=== PATIENT | female | born 1990 | race Caucasian/White ===

== ENCOUNTER 2016-04-04 13:17 | Emergency (ER) | payer OTHER ==
--- NOTE | 2016-04-04 13:49 | Emergency Department Record ---
History of Present Illness - General Chief Complaint: Abdominal Pain Stated Complaint: ABD PAIN/COUGH Time Seen by Provider: 04/04/16 13:48 Source: Patient Mode of Arrival: Ambulatory Limitations: No limitations - History of Present Illness Initial Comments: The patient is here due to a 3 hour hx of L mid to lower AP. It is intermittent and is sharp and stabbing. Presently the pain is gone. She has had nausea but no vomiting, diarrhea, dysuria, fever, chills, vaginal discharge or bleeding. The patient has a long hx of abdominal issues but this is new for her. She actually was going to the but since they were closed she decided to come to the ER. MD Complaint: Abdominal pain Onset/Timin -: Hour(s) Location: L Flank, LLQ Radiation: None Migration to: No migration Severity: Moderate Quality: Sharp, Stabbing Consistency: Intermittent Improves With: Nothing Worsens With: Movement Associated Symptoms: Nausea - Related Data LMP (females 10-50): Last week Patient : No Previous Rx's Medication Instructions Recorded Doxycycline Monohydrate [Mondoxyne 100 mg PO BID #14 capsule 04/04/16 Nl] Metronidazole [Flagyl] 500 mg PO BID #14 tablet 04/04/16 Allergies Allergy/AdvReac Type Severity Reaction Status Date / Time nitrous oxide Allergy Severe SWELLING Verified 04/04/16 14:44 OF THE FACE enoxaparin sodium Allergy Intermediate ITCHING Verified 04/04/16 14:44 [From Lovenox] ibuprofen Allergy Intermediate itching Verified 04/04/16 14:44 amoxicillin [Amoxicillin] Allergy Mild RASH Verified 04/04/16 14:44 naproxen AdvReac Intermediate HEADACHE Verified 04/04/16 14:44 topiramate [From Topamax] AdvReac Intermediate to many Verified 04/04/16 14:44 side affects Travel Screening - Travel/Exposure Within Last 30 Days Have you traveled within the last 30 days?: No - Travel/Exposure Within Last Year Have you traveled outside the [place] in the last year?: No - Additonal Travel Details Have you been exposed to anyone with a communicable illness?: No - Travel Symptoms Symptom Screening: None Review of Systems Constitutional: Denies: Chills, Fever Eyes: Denies: Eye discharge ENT: Denies: Congestion Respiratory: Denies: Cough, Dyspnea Cardiovascular: Denies: Arrhythmia, Chest pain Past Medical History - SOCIAL HISTORY Smoking Status: Current every day smoker Alcohol Use: Rare Drug Use: None - VP PRODUCTION History : 2 Para: 1 A: 1 - RESPIRATORY Hx Respiratory Disorders: No - CARDIOVASCULAR Hx Cardio Disorders: No - NEURO Hx Neuro Disorders: Yes Hx Dizziness: Yes Hx Headaches: Yes Hx Seizures: Yes (day dream seizures, epilepsy) - GI Hx GI Disorders: No - Hx Genitourinary Disorders: No - ENDOCRINE Hx Endocrine Disorders: No - MUSCULOSKELETAL Hx Musculoskeletal Disorders: Yes Hx Back Injury: Yes (L1 from fall off roof 2007) Comment:: conective tissue disorder, scoliosis - PSYCH Hx Psych Problems: Yes Hx Anxiety: Yes Hx Depression: Yes - HEMATOLOGY/ONCOLOGY Hx Hematology/Oncology Disorders: Yes Comment:: auto immune deficiency Family Medical History Any Significant Family History?: Yes Family Hx Comment (NOT TO BE USED IN PLACE OF ITEMS BELOW): Dad-brain aneurysm Mother has Lupus and White Brain Matter disease. Hx Depression: Mother Hx Heart Disease: Mother Hx HTN: Mother Physical Exam - General General Appearance: Alert, Oriented x3, Cooperative, No acute distress - Head Head exam: Atraumatic, Normocephalic, Normal inspection - Eye Eye exam: Normal appearance, PERRL - Neck Neck exam: Normal inspection, Full ROM. negative: Tenderness - Respiratory Respiratory exam: Normal lung sounds bilaterally. negative: Respiratory distress - Cardiovascular Cardiovascular Exam: Regular rate, Normal rhythm, Normal heart sounds - GI/Abdominal GI/Abdominal exam: Soft, Normal bowel sounds, Tenderness (There is mild tenderness to the L mid abdomen but the abdomen is very soft.). negative: Guarding, Pulsatile mass, Rebound, Rigid - exam: Cervical discharge, cervical motion tenderness, Normal external exam, Vaginal discharge. negative: Adnexal mass (R), Adnexal tenderness (L), Adnexal tenderness (R), Enlarged uterus, Normal speculum exam, Vaginal bleeding - Extremities Extremities exam: Normal inspection, Full ROM, Normal capillary refill. negative: Tenderness Course Vital Signs 04/04/16 13:36 Temperature 98.5 F Pulse Rate 87 Respiratory 16 Rate Blood Pressure 131/79 Pulse Ox 99 - Reevaluation(s) Reevaluation #1: The patient is doing much better at this time. She denies any pain presently and has no nausea or vomiting. She stats she does feel very mild pain with movement and bending. 01/07/17 15:26 Reevaluation #2: The patient is doing well at this time. Her pain is well controlled and we will treat her with Abx's for a presumed vaginal infection. 04/04/16 16:12 Reevaluation #3: The patient is doing very well at this time. She denies any pain or discomfort and is up ambulating with no discomfort. I explained to her we will be treating her with 2 different Abx's and will have her recheck with her PCP later this week if needed. She is to return to the ER if worse. 04/04/16 16:17 Medical Decision Making - Data Complexity MDM Data: Labs Ordered and/or Reviewed - Lab Data Result diagrams: 04/04/16 14:08 04/04/16 14:08 Disposition Disposition: Discharge Clinical Impression: Abdominal pain Qualifiers: Abdominal location: unspecified location Qualified Code(s): R10.9 - Unspecified abdominal pain Disposition: Home, Self-Care Condition: (1) Good Instructions: Abdominal Pain (ED) Additional Instructions: Please take your home Tylenol for pain. Take the Doxy and Flagyl as directed. Please see your PCP for recheck next week if needed. Return to the ER for any increased pain, fever, or vomiting. Prescriptions: Metronidazole [Flagyl] 500 mg PO BID #14 tablet Doxycycline Monohydrate [Mondoxyne Nl] 100 mg PO BID #14 capsule Forms: Patient Portal Access Time of Disposition: 16:17
[2016-04-04 14:12] LABS: BASO % 0.2 % (0-6); EOS % 1.5 % (0-6); GRAN % 42.9 % (47-80); HEMOGLOBIN 13.6 gm/dl (11.6-16.0); LYMPH % 44.4 % (16-45); MEAN CELL VOLUME 92.3 fl (81-97); MEAN CORPUSCULAR HEMOGLOBIN 30.6 pg (27-33); MEAN CORPUSCULAR HGB CONC 33.2 g/dl (32-36); MEAN PLATELET VOLUME 10.6 fl (7.4-10.4); PLATELET COUNT 191 K/uL (130-400); RED BLOOD COUNT 4.44 M/uL (3.80-5.40); RED CELL DISTRIBUTION WIDTH 13.6 % (11.5-14.5); WHITE BLOOD COUNT W/O DIFF 5.3 K/uL (4.2-12.2)
[2016-04-04 14:15] LABS: URINE APPEARANCE SL CLOUDY; URINE BILIRUBIN NEGATIVE (NEGATIVE); URINE BLOOD TRACE-I (NEGATIVE); URINE COLOR YELLOW; URINE GLUCOSE (UA) NEGATIVE (NEGATIVE); URINE KETONE NEGATIVE (NEGATIVE); URINE LEUKOCYTE ESTERASE NEGATIVE (NEGATIVE); URINE NITRITE POSITIVE (NEGATIVE); URINE PROTEIN NEGATIVE (NEGATIVE); URINE UROBILINOGEN 0.2 E.U./dL (0.20 - 1.00)
[2016-04-04 14:21] LABS: URINE BACTERIA 4+; URINE RBC 0 - 2 (NONE SEEN); URINE SQUAMOUS EPITHELIAL CELL 16 - 20 /hpf
[2016-04-04 14:22] LABS: HCG,QUALITATIVE URINE NEGATIVE (NEGATIVE)
[2016-04-04 14:24] LABS: ALBUMIN 4.4 gm/dL (3.5-5.0); ALKALINE PHOSPHATASE 73 U/L (38-126); ALT/SGPT 28 U/L (9-52); ANION GAP 8.2 (7-16); AST/SGOT 16 U/L (14-36); BILIRUBIN,TOTAL 0.32 mg/dL (0.2-1.3); BLOOD UREA NITROGEN 6 mg/dL (7-17); CARBON DIOXIDE 27.8 mmol/L (22-30); CREATININE 0.7 mg/dL (0.52-1.04); EST GLOMERULAR FILTRATION RATE > 60 ml/min; GLUCOSE,RANDOM 70 mg/dL (70-110); LIPASE 52 U/L (23-300); TOTAL PROTEIN 7.5 gm/dL (6.3-8.2)
[2016-04-04] MEDS: KETOROLAC 30 MG/ML VIAL IM ONE (14:45)
[2016-04-04 14:59] LABS: URINE APPEARANCE CLEAR; URINE BILIRUBIN NEGATIVE (NEGATIVE); URINE BLOOD NEGATIVE (NEGATIVE); URINE COLOR YELLOW; URINE GLUCOSE (UA) NEGATIVE (NEGATIVE); URINE KETONE NEGATIVE (NEGATIVE); URINE LEUKOCYTE ESTERASE NEGATIVE (NEGATIVE); URINE NITRITE NEGATIVE (NEGATIVE); URINE PROTEIN NEGATIVE (NEGATIVE); URINE UROBILINOGEN 0.2 E.U./dL (0.20 - 1.00)
[2016-04-04 15:13] LABS: URINE RBC NONE SEEN (NONE SEEN); URINE WBC 0 - 2 (0-2/hpf)
[2016-04-04 15:14] LABS: URINE BACTERIA 3+; URINE SQUAMOUS EPITHELIAL CELL 0 - 2 /hpf
[2016-04-04] MEDS: CEFTRIAXONE 250 MG VIAL IM ONE (16:08)
[2016-04-06 18:44] LABS: GC SPECIMEN TYPE Cervix (())
== END 2016-04-04 16:26 | disposition home or self-care (01) ==
LOC: ER 13:17
DX: R10.32 Left lower quadrant pain (principal); R11.0 Nausea; R05 Cough
CPT/HCPCS: 99284 ×2; 96372; 83690; 85025; 80076; 80048; 81001; 81003; 87205; 81015; 81025; 87086; Q0111; J1885; J0696; 87210

== ENCOUNTER 2016-04-09 06:25 | Emergency (ER) | payer OTHER ==
[2016-04-09 06:37] LABS: URINE APPEARANCE CLEAR; URINE BILIRUBIN NEGATIVE (NEGATIVE); URINE BLOOD TRACE-I (NEGATIVE); URINE COLOR YELLOW; URINE GLUCOSE (UA) NEGATIVE (NEGATIVE); URINE KETONE NEGATIVE (NEGATIVE); URINE LEUKOCYTE ESTERASE NEGATIVE (NEGATIVE); URINE NITRITE NEGATIVE (NEGATIVE); URINE PROTEIN NEGATIVE (NEGATIVE); URINE UROBILINOGEN 0.2 E.U./dL (0.20 - 1.00)
[2016-04-09 06:42] LABS: URINE BACTERIA NONE SEEN; URINE EPITHELIAL CELLS 0 - 2 (FEW); URINE WBC NONE SEEN (0-2/hpf)
--- NOTE | 2016-04-09 06:53 | Emergency Department Record ---
History of Present Illness - General Chief Complaint: Recheck - Other Stated Complaint: RECHECK Time Seen by Provider: 04/09/16 06:44 Source: Patient Mode of arrival: Ambulatory Limitations: No limitations - History of Present Illness Initial Comments: The patient is here due to being called for an abnormal lab test. She had a UA done during a visit 5 days ago and it did grow Ecoli on culture. The patient denied any dysuria during that visit and denies any AP, nausea, or dysuria now. She also denies any back pain or fevers. MD Complaint: Abnormal lab Onset/Timin -: Days(s) Initial Visit For: Other Returns Today for: Called because of abnormal lab/test Symptoms Since Prior Visit: No new symptoms, Improved Associated Symptoms: None Treatments Prior to Arrival: Other - Related Data Previous Rx's Medication Instructions Recorded Doxycycline Monohydrate [Mondoxyne 100 mg PO BID #14 capsule 04/04/16 Nl] Metronidazole [Flagyl] 500 mg PO BID #14 tablet 04/04/16 Allergies Allergy/AdvReac Type Severity Reaction Status Date / Time nitrous oxide Allergy Severe SWELLING Verified 04/04/16 14:44 OF THE FACE enoxaparin sodium Allergy Intermediate ITCHING Verified 04/04/16 14:44 [From Lovenox] ibuprofen Allergy Intermediate itching Verified 04/04/16 14:44 amoxicillin [Amoxicillin] Allergy Mild RASH Verified 04/04/16 14:44 naproxen AdvReac Intermediate HEADACHE Verified 04/04/16 14:44 topiramate [From Topamax] AdvReac Intermediate to many Verified 04/04/16 14:44 side affects Travel Screening - Travel/Exposure Within Last 30 Days Have you traveled within the last 30 days?: No - Travel/Exposure Within Last Year Have you traveled outside the [place] in the last year?: No - Additonal Travel Details Have you been exposed to anyone with a communicable illness?: No - Travel Symptoms Symptom Screening: None Review of Systems Constitutional: Denies: Chills, Fever Past Medical History - SOCIAL HISTORY Smoking Status: Current every day smoker Alcohol Use: None Drug Use: None - RESPIRATORY Hx Respiratory Disorders: No - CARDIOVASCULAR Hx Cardio Disorders: No - NEURO Hx Neuro Disorders: Yes Hx Dizziness: Yes Hx Headaches: Yes Hx Seizures: Yes (day dream seizures, epilepsy) - GI Hx GI Disorders: No - Hx Genitourinary Disorders: No - ENDOCRINE Hx Endocrine Disorders: No - MUSCULOSKELETAL Hx Musculoskeletal Disorders: Yes Hx Back Injury: Yes (L1 from fall off roof 2007) Comment:: conective tissue disorder, scoliosis - PSYCH Hx Psych Problems: Yes Hx Anxiety: Yes Hx Depression: Yes - HEMATOLOGY/ONCOLOGY Hx Hematology/Oncology Disorders: Yes Comment:: auto immune deficiency Family Medical History Any Significant Family History?: No Family Hx Comment (NOT TO BE USED IN PLACE OF ITEMS BELOW): Dad-brain aneurysm Mother has Lupus and White Brain Matter disease. Hx Depression: Mother Hx Heart Disease: Mother Hx HTN: Mother Physical Exam - General General Appearance: Alert, Oriented x3, Cooperative, No acute distress - Head Head exam: Atraumatic, Normocephalic, Normal inspection - Eye Eye exam: Normal appearance, PERRL - Neck Neck exam: Normal inspection, Full ROM. negative: Tenderness - Respiratory Respiratory exam: Normal lung sounds bilaterally. negative: Respiratory distress - Cardiovascular Cardiovascular Exam: Regular rate, Normal rhythm, Normal heart sounds - GI/Abdominal GI/Abdominal exam: Soft, Normal bowel sounds. negative: Guarding, Rigid, Tenderness Course Vital Signs 04/09/16 04/09/16 06:27 06:35 Temperature 99.0 F Pulse Rate 86 Respiratory 20 Rate Blood Pressure 117/69 Pulse Ox 96 - Reevaluation(s) Reevaluation #1: I explained to the patient her UA is WNL and she is to F/U with her PCP for any problems. 04/09/16 07:01 Medical Decision Making - Lab Data Lab Results 04/09/16 Range/Units 06:30 Urine Color Yellow Urine Appearance Clear Urine pH 6.0 (5.0-8.0) Ur Specific [place] 1.025 (1.002-1.030) Urine Protein Negative (NEGATIVE) Urine Glucose (UA) Negative (NEGATIVE) Urine Ketones Negative (NEGATIVE) Urine Blood Trace-i (NEGATIVE) Urine Nitrite Negative (NEGATIVE) Urine Bilirubin Negative (NEGATIVE) Urine Urobilinogen 0.2 (0.20 - 1.00) E.U./dL Ur Leukocyte Esterase Negative (NEGATIVE) Urine RBC 3 - 6 (NONE SEEN) Urine WBC None seen (0-2/hpf) Ur Epithelial Cells 0 - 2 (FEW) Urine Bacteria None seen Disposition Disposition: Discharge Clinical Impression: Abdominal pain Qualifiers: Abdominal location: unspecified location Qualified Code(s): R10.9 - Unspecified abdominal pain Disposition: Home, Self-Care Condition: (1) Good Instructions: Acute Abdominal Pain (ED) Additional Instructions: Please continue your regular medicines and finish your Antibiotics. Please see your PCP for any problems or return to the ER. Forms: Patient Portal Access Time of Disposition: 06:56
== END 2016-04-09 07:06 | disposition home or self-care (01) ==
LOC: ER 06:25
DX: R10.9 Unspecified abdominal pain (principal)
CPT/HCPCS: 81001; 99282

== ENCOUNTER 2016-04-13 07:39 | Emergency (ER) | payer OTHER ==
--- NOTE | 2016-04-13 07:55 | Emergency Department Record ---
History of Present Illness - General Chief Complaint: Abdominal Pain Stated Complaint: ABD PAIN Time Seen by Provider: 04/13/16 07:54 Source: Patient Mode of Arrival: Ambulatory Limitations: No limitations - History of Present Illness Initial Comments: The patient is here due to a 4 day hx of mainly upper abdominal pain. The pain is sharp and stabbing and increases with eating at times. After eating recently the patient has experienced bloating, cramping, and mild constipation. She denies any vaginal discharge, bleeding, or dysuria. This issues has been a chronic problem for months with the patient and she has been to the ER multiple times for abdominal pain. She last was in the ED 9 days ago and had a full pelvic exam with neg cultures. The patient has had her GB removed in the past. MD Complaint: Abdominal pain Onset/Timin -: Days(s) Location: Epigastric, Suprapubic Radiation: None Migration to: No migration Severity: Moderate Quality: Sharp, Stabbing Consistency: Constant Improves With: Nothing Worsens With: Nothing Associated Symptoms: Nausea, Vomiting - Related Data LMP Date: 03/22/16 Patient : No Previous Rx's Medication Instructions Recorded Ondansetron [Zofran Odt] 4 mg SL .Q4-6H PRN #12 tab.rapdis 04/13/16 Sucralfate [Carafate] 1 gm PO QID #28 tablet 04/13/16 Allergies Allergy/AdvReac Type Severity Reaction Status Date / Time nitrous oxide Allergy Severe SWELLING Verified 04/04/16 14:44 OF THE FACE enoxaparin sodium Allergy Intermediate ITCHING Verified 04/04/16 14:44 [From Lovenox] ibuprofen Allergy Intermediate itching Verified 04/04/16 14:44 amoxicillin [Amoxicillin] Allergy Mild RASH Verified 04/04/16 14:44 naproxen AdvReac Intermediate HEADACHE Verified 04/04/16 14:44 topiramate [From Topamax] AdvReac Intermediate to many Verified 04/04/16 14:44 side affects Travel Screening - Travel/Exposure Within Last 30 Days Have you traveled within the last 30 days?: No Review of Systems Constitutional: Denies: Chills, Fever Eyes: Denies: Eye discharge ENT: Denies: Congestion Respiratory: Denies: Cough, Dyspnea Past Medical History - SOCIAL HISTORY Smoking Status: Current every day smoker Alcohol Use: None Drug Use: None - RESPIRATORY Hx Respiratory Disorders: No - CARDIOVASCULAR Hx Cardio Disorders: No - NEURO Hx Neuro Disorders: Yes Hx Dizziness: Yes Hx Headaches: Yes Hx Seizures: Yes (day dream seizures, epilepsy) - GI Hx GI Disorders: No - Hx Genitourinary Disorders: No - ENDOCRINE Hx Endocrine Disorders: No - MUSCULOSKELETAL Hx Musculoskeletal Disorders: Yes Hx Back Injury: Yes (L1 from fall off roof 2007) Comment:: conective tissue disorder, scoliosis - PSYCH Hx Psych Problems: Yes Hx Anxiety: Yes Hx Depression: Yes - HEMATOLOGY/ONCOLOGY Hx Hematology/Oncology Disorders: Yes Comment:: auto immune deficiency Family Medical History Any Significant Family History?: Yes Family Hx Comment (NOT TO BE USED IN PLACE OF ITEMS BELOW): Dad-brain aneurysm Mother has Lupus and White Brain Matter disease. Hx Depression: Mother Hx Heart Disease: Mother Hx HTN: Mother Physical Exam - General General Appearance: Alert, Oriented x3, Cooperative, No acute distress - Head Head exam: Atraumatic, Normocephalic, Normal inspection - Eye Eye exam: Normal appearance, PERRL - ENT Throat exam: Normal inspection. negative: Tonsillar erythema, Tonsillar exudate - Neck Neck exam: Normal inspection, Full ROM. negative: Tenderness - Respiratory Respiratory exam: Normal lung sounds bilaterally. negative: Respiratory distress - Cardiovascular Cardiovascular Exam: Regular rate, Normal rhythm, Normal heart sounds - GI/Abdominal GI/Abdominal exam: Soft, Normal bowel sounds, Tenderness (There is mild upper abdominal tenderness but the abdomen is very soft.). negative: Pulsatile mass, Rebound, Rigid - Extremities Extremities exam: Normal inspection, Full ROM, Normal capillary refill. negative: Tenderness - Neurological Neurological exam: Normal gait. negative: Abnormal gait Course Vital Signs 04/13/16 07:53 Temperature 98.2 F Pulse Rate [ 89 Pulse Ox Probe] Respiratory 18 Rate Blood Pressure 105/77 [Right Arm] Pulse Ox 96 - Reevaluation(s) Reevaluation #1: The patient is doing much better at this time. Her pain has mainly resolved with the GI medicines and there is no longer any mild tenderness on palpation of the upper abdomen. 04/13/16 08:56 Reevaluation #2: The patient is doing better at this time. She denies any significant pain presently. On exam her abdomen is VERY soft with no specific tenderness in all 4 quads. I did explain the plan to her and the need for F/U. 04/13/16 09:25 Medical Decision Making - Data Complexity MDM Data: Labs Ordered and/or Reviewed, X-Ray Ordered and/or Reviewed - Lab Data Result diagrams: 04/13/16 07:50 04/13/16 07:50 - Radiology Data Radiology results: Report reviewed (AXR: Neg.) Disposition Disposition: Discharge Clinical Impression: Abdominal pain Qualifiers: Abdominal location: unspecified location Qualified Code(s): R10.9 - Unspecified abdominal pain Disposition: Home, Self-Care Condition: (1) Good Instructions: Constipation (ED), Abdominal Pain (ED) Additional Instructions: Please take an OTC laxative as directed and use the Zofran for nausea. Please take the Carafate as directed. Please see your PCP this week for recheck and also follow up with Dr. Sherman for a possible EGD. Return to the ER for any increased pain, fever, or vomiting. Prescriptions: Sucralfate [Carafate] 1 gm PO QID #28 tablet Ondansetron [Zofran Odt] 4 mg SL .Q4-6H PRN #12 tab.rapdis PRN Reason: Nausea Forms: Patient Portal Access Time of Disposition: 09:29
[2016-04-13] MEDS ORDERED: 0.9 % SODIUM CHLORIDE 1,000 ML BAG IV ONE (07:58)
[2016-04-13] MEDS ORDERED: ONDANSETRON HCL IV 4 MG/2 ML VIAL IV ONE (07:58)
[2016-04-13] MEDS ORDERED: MAGNESIUM HYDROXIDE/AL HYDROX 10.0001 ML, LIDOCAINE VISC 2% 200 MG, PHENOBARB/HYOSCY/AT... PO ONE ×3 (07:59)
[2016-04-13] MEDS ORDERED: SUCRALFATE 1 G/10 ML UD PO ONE (07:59)
[2016-04-13 08:09] LABS: BASO % 0.2 % (0-6); EOS % 1.4 % (0-6); GRAN % 48.9 % (47-80); HEMATOCRIT 44.1 % (35.0-47.0); HEMOGLOBIN 14.9 gm/dl (11.6-16.0); MEAN CORPUSCULAR HEMOGLOBIN 30.4 pg (27-33); MEAN CORPUSCULAR HGB CONC 33.8 g/dl (32-36); MEAN PLATELET VOLUME 10.3 fl (7.4-10.4); MONO % 7.5 % (0-9); PLATELET COUNT 258 K/uL (130-400); RED CELL DISTRIBUTION WIDTH 13.4 % (11.5-14.5); WHITE BLOOD COUNT W/O DIFF 9.6 K/uL (4.2-12.2)
[2016-04-13 08:10] LABS: HCG,QUALITATIVE URINE NEGATIVE (NEGATIVE)
[2016-04-13 08:15] LABS: URINE APPEARANCE CLEAR; URINE BILIRUBIN NEGATIVE (NEGATIVE); URINE BLOOD NEGATIVE (NEGATIVE); URINE COLOR YELLOW; URINE GLUCOSE (UA) NEGATIVE (NEGATIVE); URINE KETONE NEGATIVE (NEGATIVE); URINE LEUKOCYTE ESTERASE SMALL (NEGATIVE); URINE NITRITE NEGATIVE (NEGATIVE); URINE PROTEIN NEGATIVE (NEGATIVE); URINE UROBILINOGEN 0.2 E.U./dL (0.20 - 1.00)
[2016-04-13 08:18] LABS: ALBUMIN 5.2 gm/dL (3.5-5.0); ALKALINE PHOSPHATASE 84 U/L (38-126); ALT/SGPT 32 U/L (9-52); AMYLASE 73 U/L (30-110); ANION GAP 17.1 (7-16); AST/SGOT 23 U/L (14-36); BLOOD UREA NITROGEN 8 mg/dL (7-17); CARBON DIOXIDE 26.9 mmol/L (22-30); CREATININE 0.8 mg/dL (0.52-1.04); EST GLOMERULAR FILTRATION RATE > 60 ml/min; GLUCOSE,RANDOM 83 mg/dL (70-110); LIPASE 49 U/L (23-300); TOTAL PROTEIN 8.5 gm/dL (6.3-8.2)
[2016-04-13 08:23] LABS: URINE BACTERIA FEW; URINE RBC 0 - 2 (NONE SEEN)
--- NOTE | 2016-04-16 09:05 | RADIOLOGY REPORT ---
EXAM: ABDOMEN, TWO VIEWS HISTORY: ABDOMINAL PAIN, CANNOT KEEP FOOD DOWN, NAUSEATED. THE PAIN IS IN THE UPPER AND LOWER MID PORTIONS OF THE ABDOMEN. TECHNIQUE: Supine and upright views of the abdomen were obtained. Comparison: No prior abdomen series. FINDINGS: Moderate stool particularly in the left side of the colon. No prominently dilated air filled loops of bowel identified. There are a few mild scattered air fluid levels probably in the proximal colon. No free air identified. Round metallic densities overlying the breast shadows bilaterally, presumably periareolar ornamental devices. IMPRESSION: 1. MODERATE STOOL PARTICULARLY IN THE LEFT SIDE OF THE COLON. CLINICAL CORRELATION TO CONSTIPATION SUGGESTED. 2. SOME MILD AIR FLUID LEVELS PARTICULARLY IN THE RIGHT SIDE OF THE COLON. 3. NO FREE AIR EVIDENT. JOB NUMBER: [id number] [facility]
== END 2016-04-13 09:44 | disposition home or self-care (01) ==
LOC: ER 07:39
DX: R10.13 Epigastric pain (principal); R11.2 Nausea with vomiting, unspecified
CPT/HCPCS: 99284 ×2; 96374; 96361; 82150; 83690; 85025; 80076; 80048; 81001; 81025; 74020; J2405; J7030

== ENCOUNTER 2016-05-03 11:51 | Emergency (ER) | payer OTHER ==
--- NOTE | 2016-05-03 12:16 | Emergency Department Record ---
History of Present Illness - General Chief complaint: Vaginal bleeding Stated complaint: VAG BLEEDING/6 WKS Time Seen by Provider: 05/03/16 11:53 Source: Patient Mode of Arrival: Ambulatory Limitations: No limitations - History of Present Illness Initial comments: 26 yo female presents to ED with a CC of vaginal spotting and cramping symptoms that began this morning. Patient reports that she is approximately 6 weeks by dates, reported taking several tests 2 weeks ago. Patient reports that she had a "ruptured cyst" 4 years ago while with her son. Patient denies health problems at her baseline. MD Complaint: Vaginal bleeding Onset/Timin -: Minutes(s) Location: Other Radiation: Suprapubic Severity: Mild Severity scale (1-10): 2 Quality: Cramping Consistency: Constant Improves with: None Worsens with: None Patient : Yes LMP Date: 03/22/16 Gestational Age (wks) based on LMP: 6 Associated Symptoms: Vaginal bleeding - Related Data : 3 Para: 1 Previous Rx's Medication Instructions Recorded Ondansetron [Zofran Odt] 4 mg SL .Q4-6H PRN #12 tab.rapdis 04/13/16 Allergies Allergy/AdvReac Type Severity Reaction Status Date / Time nitrous oxide Allergy Severe SWELLING Verified 05/03/16 12:04 OF THE FACE enoxaparin sodium Allergy Intermediate ITCHING Verified 05/03/16 12:04 [From Lovenox] ibuprofen Allergy Intermediate itching Verified 05/03/16 12:04 amoxicillin [Amoxicillin] Allergy Mild RASH Verified 05/03/16 12:04 naproxen AdvReac Intermediate HEADACHE Verified 05/03/16 12:04 topiramate [From Topamax] AdvReac Intermediate to many Verified 05/03/16 12:04 side affects Travel Screening - Travel/Exposure Within Last 30 Days Have you traveled within the last 30 days?: No Review of Systems Constitutional: Denies: Chills, Fever, Malaise, Night sweats Eyes: Denies: Eye discharge, Eye pain ENT: Denies: Dental pain, Ear pain Respiratory: Denies: Cough, Dyspnea Cardiovascular: Denies: Chest pain, Dyspnea on exertion Endocrine: Denies: Fatigue, Heat or cold intolerance Gastrointestinal: Denies: Abdominal pain, Nausea, Vomiting Genitourinary: Denies: Dysuria, Frequency, Hematuria, Incontinence Musculoskeletal: Denies: Arthralgia, Back pain, Gout, Joint swelling Skin: Denies: Bruising, Change in color Neurological: Denies: Abnormal gait, Confusion, Headache, Seizure Psychiatric: Denies: Anxiety Hematological/Lymphatic: Denies: Anemia, Blood Clots Past Medical History - SOCIAL HISTORY Smoking Status: Current every day smoker Alcohol Use: None 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 Para: 1 - RESPIRATORY Hx Respiratory Disorders: No - CARDIOVASCULAR Hx Cardio Disorders: No - NEURO Hx Neuro Disorders: Yes Hx Dizziness: Yes Hx Headaches: Yes Hx Seizures: Yes (day dream seizures, epilepsy) - GI Hx GI Disorders: No - Hx Genitourinary Disorders: No - ENDOCRINE Hx Endocrine Disorders: No - MUSCULOSKELETAL Hx Musculoskeletal Disorders: Yes Hx Back Injury: Yes (L1 from fall off roof 2007) Comment:: conective tissue disorder, scoliosis - PSYCH Hx Psych Problems: Yes Hx Anxiety: Yes Hx Depression: Yes - HEMATOLOGY/ONCOLOGY Hx Hematology/Oncology Disorders: Yes Comment:: auto immune deficiency Family Medical History Any Significant Family History?: Yes Family Hx Comment (NOT TO BE USED IN PLACE OF ITEMS BELOW): Dad-brain aneurysm Mother has Lupus and White Brain Matter disease. Hx Depression: Mother Hx Heart Disease: Mother Hx HTN: Mother Physical Exam - General General Appearance: Alert, Oriented x3, Cooperative, No acute distress Limitations: No limitations - Head Head exam: Atraumatic, Normocephalic, Normal inspection Head exam detail: negative: Abrasion, Contusion, Cruz's sign, General tenderness, Hematoma, Laceration - Eye Eye exam: Normal appearance. negative: Conjunctival injection, Periorbital swelling, Periorbital tenderness, Scleral icterus - ENT Ear exam: negative: Auricular hematoma, Auricular trauma Nasal Exam: negative: Active bleeding, Discharge, Dried blood, Foreign body Mouth exam: negative: Drooling, Laceration, Muffled voice, Tongue elevation - Neck Neck exam: Normal inspection. negative: Meningismus, Tenderness - Respiratory Respiratory exam: Normal lung sounds bilaterally. negative: Respiratory distress, Rhonchi, Stridor, Wheezes - Cardiovascular Cardiovascular Exam: Regular rate, Normal rhythm, Normal heart sounds - GI/Abdominal GI/Abdominal exam: Soft. negative: Rebound, Rigid, Tenderness - Rectal Rectal exam: Deferred - exam: Deferred - Extremities Extremities exam: Normal inspection. negative: Calf tenderness, Pedal edema, Tenderness - Back Back exam: Denies: CVA tenderness (R), CVA tenderness (L) - Neurological Neurological exam: Alert, Normal gait, Oriented X3 - Psychiatric Psychiatric exam: Normal affect, Normal mood. negative: Anxious - Skin Skin exam: Normal color. negative: Abrasion Type of lesion: negative: abrasion Course Vital Signs 05/03/16 11:58 Temperature 98.3 F Pulse Rate 95 H Respiratory 16 Rate Blood Pressure 124/70 Pulse Ox 98 - Reevaluation(s) Reevaluation #1: 05/03/16 12:36 UA reviewed and is positive for . BHCG ordered as well as Rh type. Case was discussed with Dr. Dumas at [facility] per patient request, will transfer for pelvic ultrasound following blood work. 05/03/16 13:21 Reevaluation #2: 05/03/16 13:22 Patient's labs have been reviwed, Rh negative, BHCG 438. Labs are otherwise grossly unremarkable for an acute process. Medical Decision Making - Lab Data Result diagrams: 05/03/16 12:42 05/03/16 12:42 Disposition Disposition: Transfer Clinical Impression: Vaginal bleeding in Qualifiers: Trimester: first trimester Qualified Code(s): O46.91 - Antepartum hemorrhage, unspecified, first trimester Disposition: Acute Care Hospital Transfer Transfer To: [facility] Reason For Transfer: US imaging pelvis Accepting Physician: Alesia Time Discussed w/Accepting Physician: 12:38 Condition: (2) Stable Forms: Patient Portal Access Time of Disposition: 12:38
[2016-05-03 12:21] LABS: URINE APPEARANCE CLEAR; URINE BILIRUBIN NEGATIVE (NEGATIVE); URINE BLOOD LARGE (NEGATIVE); URINE COLOR YELLOW; URINE GLUCOSE (UA) NEGATIVE (NEGATIVE); URINE KETONE NEGATIVE (NEGATIVE); URINE LEUKOCYTE ESTERASE TRACE (NEGATIVE); URINE NITRITE POSITIVE (NEGATIVE); URINE PROTEIN NEGATIVE (NEGATIVE); URINE UROBILINOGEN 0.2 E.U./dL (0.20 - 1.00)
[2016-05-03 12:27] LABS: HCG,QUALITATIVE URINE POSITIVE (NEGATIVE); URINE BACTERIA 2+; URINE RBC 21 - 35 (NONE SEEN)
[2016-05-03 12:51] LABS: BASO % 0.3 % (0-6); EOS % 1.6 % (0-6); GRAN % 54.2 % (47-80); HEMOGLOBIN 13.7 gm/dl (11.6-16.0); LYMPH % 35.9 % (16-45); MEAN CELL VOLUME 91.7 fl (81-97); MEAN CORPUSCULAR HEMOGLOBIN 30.6 pg (27-33); MEAN CORPUSCULAR HGB CONC 33.4 g/dl (32-36); MEAN PLATELET VOLUME 10.5 fl (7.4-10.4); PLATELET COUNT 254 K/uL (130-400); RED BLOOD COUNT 4.47 M/uL (3.80-5.40); RED CELL DISTRIBUTION WIDTH 13.4 % (11.5-14.5); WHITE BLOOD COUNT W/O DIFF 6.4 K/uL (4.2-12.2)
[2016-05-03 13:04] LABS: ALB/GLOB RATIO 1.7 (1.1-1.8); ALBUMIN 4.8 gm/dL (3.5-5.0); ALKALINE PHOSPHATASE 80 U/L (38-126); ALT/SGPT 26 U/L (9-52); ANION GAP 16.4 (7-16); AST/SGOT 17 U/L (14-36); BILIRUBIN,TOTAL 0.41 mg/dL (0.2-1.3); BLOOD UREA NITROGEN 8 mg/dL (7-17); CARBON DIOXIDE 23.6 mmol/L (22-30); CREATININE 0.7 mg/dL (0.52-1.04); EST GLOMERULAR FILTRATION RATE > 60 ml/min; GLUCOSE,RANDOM 80 mg/dL (70-110); TOTAL PROTEIN 7.7 gm/dL (6.3-8.2)
== END 2016-05-03 13:00 | disposition short-term general hospital (02) ==
LOC: ER 11:51
DX: O46.91 Antepartum hemorrhage, unspecified, first trimester (principal); Z3A.01 Less than 8 weeks gestation of pregnancy
CPT/HCPCS: 80053; 81001; 81025; 84702; 85025; 86901; 99285

== ENCOUNTER 2016-08-17 15:13 | Emergency (ER) | payer OTHER ==
--- NOTE | 2016-08-17 15:34 | Emergency Department Record ---
History of Present Illness - General Chief Complaint: Numbness Stated Complaint: NUMBNESS ALL OVER HER BODY Time Seen by Provider: 08/17/16 15:30 Source: Patient Mode of Arrival: Ambulatory Limitations: No limitations - History of Present Illness Initial Comments: 26 yo female presents to ED with a CC of intermittent, bilateral parasthesias to the lips, upper extremities, back, and lower extremities at various times over the past 2 days. Patient denies motor weakness to the face, head, or extremities, denies back pain symptoms, denies fever or incontinence symptoms. Patient deneis headache symptoms as well. Patient does report restarting Vitamin D yesterday, symptoms have occurred following the ingestion each time. Patient denies health problems at her baseline. Onset/Timin -: Days(s) Location: Left face, Right face, Left leg, Right leg, Other History of same: No Place: Home Severity: Mild Quality: Numb Context: Gradual onset Associated Symptoms: Other Treatments Prior to Arrival: None - Danielito Coma Scale Eye Response: (4) Open spontaneously Motor Response: (6) Obeys commands Verbal Response: (5) Oriented Danielito Total: 15 - Related Data Home Medications: Home Medications Medication Instructions Recorded Confirmed Last Taken Cholecalciferol (Vitamin D3) 10,000 unit PO DAILY 08/17/16 08/17/16 08/17/16 [Vitamin D3] Allergies/Adverse Reactions: Allergies Allergy/AdvReac Type Severity Reaction Status Date / Time nitrous oxide Allergy Severe SWELLING Verified 08/17/16 15:21 OF THE FACE enoxaparin sodium Allergy Intermediate ITCHING Verified 08/17/16 15:21 [From Lovenox] ibuprofen Allergy Intermediate itching Verified 08/17/16 15:21 amoxicillin [Amoxicillin] Allergy Mild RASH Verified 08/17/16 15:21 naproxen AdvReac Intermediate HEADACHE Verified 08/17/16 15:21 topiramate [From Topamax] AdvReac Intermediate to many Verified 08/17/16 15:21 side affects Travel Screening - Travel/Exposure Within Last 30 Days Have you traveled within the last 30 days?: No Review of Systems Constitutional: Denies: Chills, Fever, Malaise, Night sweats Eyes: Denies: Eye discharge, Eye pain ENT: Denies: Congestion, Ear pain, Epistaxis Respiratory: Denies: Cough, Dyspnea Cardiovascular: Denies: Chest pain, Dyspnea on exertion Endocrine: Denies: Fatigue, Heat or cold intolerance Gastrointestinal: Denies: Abdominal pain, Nausea, Vomiting Genitourinary: Denies: Dysuria, Incontinence Musculoskeletal: Denies: Arthralgia, Back pain, Gout, Joint swelling Skin: Denies: Bruising, Change in color Neurological: Reports: Numbness. Denies: Abnormal gait, Confusion, Headache, Seizure Psychiatric: Denies: Anxiety Hematological/Lymphatic: Denies: Anemia, Blood Clots Past Medical History - SOCIAL HISTORY Smoking Status: Current every day smoker Alcohol Use: Rare Drug Use: None - RESPIRATORY Hx Respiratory Disorders: No - CARDIOVASCULAR Hx Cardio Disorders: No - NEURO Hx Neuro Disorders: Yes Hx Dizziness: Yes Hx Headaches: Yes Hx Seizures: Yes (day dream seizures, epilepsy) - GI Hx GI Disorders: No - Hx Genitourinary Disorders: No - ENDOCRINE Hx Endocrine Disorders: No - MUSCULOSKELETAL Hx Musculoskeletal Disorders: Yes Hx Back Injury: Yes (L1 from fall off roof 2007) Comment:: conective tissue disorder, scoliosis - PSYCH Hx Psych Problems: Yes Hx Anxiety: Yes Hx Depression: Yes - HEMATOLOGY/ONCOLOGY Hx Hematology/Oncology Disorders: Yes Comment:: auto immune deficiency Family Medical History Any Significant Family History?: Yes Family Hx Comment (NOT TO BE USED IN PLACE OF ITEMS BELOW): Dad-brain aneurysm Mother has Lupus and White Brain Matter disease. Hx Depression: Mother Hx Heart Disease: Mother Hx HTN: Mother Physical Exam - General General Appearance: Alert, Oriented x3, Cooperative, No acute distress Limitations: No limitations - Head Head exam: Atraumatic, Normocephalic, Normal inspection Head exam detail: negative: Abrasion, Contusion, Cruz's sign, General tenderness, Hematoma, Laceration - Eye Eye exam: Normal appearance. negative: Conjunctival injection, Periorbital swelling, Periorbital tenderness, Scleral icterus - ENT Ear exam: negative: Auricular hematoma, Auricular trauma Nasal Exam: negative: Active bleeding, Discharge, Dried blood, Foreign body Mouth exam: negative: Drooling, Laceration, Muffled voice, Tongue elevation - Neck Neck exam: Normal inspection. negative: Meningismus, Tenderness - Respiratory Respiratory exam: Normal lung sounds bilaterally. negative: Rales, Respiratory distress, Rhonchi, Stridor - Cardiovascular Cardiovascular Exam: Regular rate, Normal rhythm, Normal heart sounds - GI/Abdominal GI/Abdominal exam: Soft. negative: Rebound, Rigid, Tenderness - Rectal Rectal exam: Deferred - exam: Deferred - Extremities Extremities exam: Normal inspection. negative: Calf tenderness, Pedal edema, Tenderness - Back Back exam: Denies: CVA tenderness (R), CVA tenderness (L) - Neurological Neurological exam: Alert, CN II-XII intact, Normal gait, Oriented X3 - Psychiatric Psychiatric exam: Normal affect, Normal mood - Skin Skin exam: Normal color. negative: Abrasion Type of lesion: negative: abrasion Course Vital Signs 08/17/16 15:15 Temperature 97.9 F Pulse Rate 89 Respiratory 18 Rate Blood Pressure 130/80 Pulse Ox 100 - Reevaluation(s) Reevaluation #1: 08/17/16 15:58 Labs reviewed and are grossly unremarkable for an acute process. Neurologic examination is normal on examination with subjective numbness to the thighs posterior and back bilaterally, no evidence for acute spinal cord compression syndrome or acute neurological emergency. Symptoms may be related to anxiety? Patient appears stable for discharge at this time. Medical Decision Making - Lab Data Result diagrams: 08/17/16 16:18 08/17/16 15:35 Disposition Disposition: Discharge Clinical Impression: Numbness in both legs Disposition: Home, Self-Care Condition: (2) Stable Instructions: Paresthesia (ED) Additional Instructions: Return to ED if your symptoms worsen or if you have any concerns. Follow-up with your family doctor in 3-5 days as directed. Forms: Patient Portal Access Time of Disposition: 16:01
[2016-08-17 15:52] LABS: ALB/GLOB RATIO 1.5 (1.1-1.8); ALBUMIN 4.8 gm/dL (3.5-5.0); ALKALINE PHOSPHATASE 86 U/L (38-126); ALT/SGPT 23 U/L (9-52); ANION GAP 5.4 (7-16); AST/SGOT 28 U/L (14-36); BILIRUBIN,TOTAL 0.77 mg/dL (0.2-1.3); BLOOD UREA NITROGEN 11 mg/dL (7-17); CARBON DIOXIDE 25.6 mmol/L (22-30); CREATININE 0.8 mg/dL (0.52-1.04); EST GLOMERULAR FILTRATION RATE > 60 ml/min; GLUCOSE,RANDOM 112 mg/dL (70-110); TOTAL PROTEIN 7.9 gm/dL (6.3-8.2)
[2016-08-17 16:22] LABS: BASO % 0.5 % (0-6); EOS % 1.8 % (0-6); GRAN % 61.5 % (47-80); HEMATOCRIT 41.3 % (35.0-47.0); HEMOGLOBIN 13.4 gm/dl (11.6-16.0); LYMPH % 28.4 % (16-45); MEAN CELL VOLUME 91.8 fl (81-97); MEAN CORPUSCULAR HEMOGLOBIN 29.8 pg (27-33); MEAN CORPUSCULAR HGB CONC 32.4 g/dl (32-36); MEAN PLATELET VOLUME 10.3 fl (7.4-10.4); MONO % 7.8 % (0-9); PLATELET COUNT 257 K/uL (130-400); RED CELL DISTRIBUTION WIDTH 13.3 % (11.5-14.5); WHITE BLOOD COUNT W/O DIFF 5.5 K/uL (4.2-12.2)
== END 2016-08-17 16:48 | disposition home or self-care (01) ==
LOC: ER 15:13
DX: R20.0 Anesthesia of skin (principal)
CPT/HCPCS: 80053; 85025; 99283

== ENCOUNTER 2016-10-03 16:35 | Emergency (ER) | payer SELFPAY ==
--- NOTE | 2016-10-03 17:00 | Emergency Department Record ---
History of Present Illness - General Chief complaint: Rash Stated complaint: RASH Time Seen by Provider: 10/03/16 16:57 Source: Patient, Family Mode of Arrival: Ambulatory Limitations: No limitations - History of Present Illness Initial comments: 26 yo female presents with an itchy rash for one month. Other individuals in her home have the same rash that itches. It is papular. It is on the hands and in between the fingers and toes. No fever. NO NVD. No other symptoms. Onset/Timin -: Month(s) Hx Tetanus Toxoid Vaccination: Yes Year of Tetanus Vaccination: unsure Location: Generalized Improves with: None Worsens with: None Context: None Associated symptoms: Itching Treatments Prior to Arrival: None - Related Data Home Medications Medication Instructions Recorded Confirmed Last Taken Clindamycin HCl [Cleocin HCl] 300 mg PO DAILY 10/03/16 10/03/16 Unknown Previous Rx's Medication Instructions Recorded Permethrin [Bedding [place]] 142 gm MC ONCE #1 spray 10/03/16 Prednisone [Prednisone 20Mg] 20 mg PO BID #10 tab 10/03/16 Allergies Allergy/AdvReac Type Severity Reaction Status Date / Time nitrous oxide Allergy Severe SWELLING Unverified 08/27/16 09:20 OF THE FACE enoxaparin sodium Allergy Intermediate ITCHING Unverified 08/27/16 09:20 [From Lovenox] ibuprofen Allergy Intermediate itching Unverified 08/27/16 09:20 amoxicillin [Amoxicillin] Allergy Mild RASH Unverified 08/27/16 09:20 naproxen AdvReac Intermediate HEADACHE Unverified 08/27/16 09:20 topiramate [From Topamax] AdvReac Intermediate to many Unverified 08/27/16 09:20 side affects Travel Screening - Travel/Exposure Within Last 30 Days Have you traveled within the last 30 days?: No Review of Systems Constitutional: Denies: Chills, Fever, Malaise, Weakness Eyes: Denies: Eye discharge ENT: Denies: Congestion, Throat pain Respiratory: Denies: Cough, Dyspnea, Hemoptysis Cardiovascular: Denies: Chest pain, Syncope Endocrine: Denies: Fatigue Gastrointestinal: Denies: Abdominal pain, Diarrhea, Nausea, Vomiting Genitourinary: Denies: Dysuria, Urgency Musculoskeletal: Denies: Arthralgia, Back pain, Myalgia Skin: Reports: Change in color, Rash. Denies: Bruising Neurological: Denies: Headache Psychiatric: Denies: Anxiety Hematological/Lymphatic: Denies: Easy bleeding, Easy bruising, Swollen glands Past Medical History - SOCIAL HISTORY Smoking Status: Current every day smoker - RESPIRATORY Hx Respiratory Disorders: No - CARDIOVASCULAR Hx Cardio Disorders: No - NEURO Hx Neuro Disorders: Yes Hx Dizziness: Yes Hx Headaches: Yes Hx Seizures: Yes (day dream seizures, epilepsy) - GI Hx GI Disorders: No - Hx Genitourinary Disorders: No - ENDOCRINE Hx Endocrine Disorders: No - MUSCULOSKELETAL Hx Musculoskeletal Disorders: Yes Hx Back Injury: Yes (L1 from fall off roof 2007) Comment:: conective tissue disorder, scoliosis - PSYCH Hx Psych Problems: Yes Hx Anxiety: Yes Hx Depression: Yes - HEMATOLOGY/ONCOLOGY Hx Hematology/Oncology Disorders: Yes Comment:: auto immune deficiency Family Medical History Any Significant Family History?: Yes Family Hx Comment (NOT TO BE USED IN PLACE OF ITEMS BELOW): Dad-brain aneurysm Mother has Lupus and White Brain Matter disease. Hx Depression: Mother Hx Heart Disease: Mother Hx HTN: Mother Physical Exam - General General Appearance: Alert, Oriented x3, Cooperative, No acute distress - Head Head exam: Atraumatic - Eye Eye exam: Normal appearance - ENT ENT exam: Normal exam Ear exam: Normal external inspection Nasal Exam: Normal inspection Mouth exam: Normal external inspection - Neck Neck exam: Normal inspection - Cardiovascular Cardiovascular Exam: Regular rate, Normal rhythm, Normal heart sounds - GI/Abdominal GI/Abdominal exam: Soft - Rectal Rectal exam: Deferred - exam: Deferred - Extremities Extremities exam: negative: Normal inspection (rash) - Back Back exam: Reports: Normal inspection - Neurological Neurological exam: Alert, Oriented X3 - Psychiatric Psychiatric exam: Normal affect, Normal mood - Skin Skin exam: Erythema (papular), Rash Distribution of rash: RUE, LUE, RLE, LLE, Other (in between the fingers and toes ) Course Vital Signs 10/03/16 16:39 Temperature 98.7 F Pulse Rate 101 H Respiratory 18 Rate Blood Pressure 124/79 Pulse Ox 99 Disposition Disposition: Discharge Clinical Impression: Scabies Disposition: Home, Self-Care Condition: (1) Good Instructions: Scabies (ED), Scabies in Children (ED) Additional Instructions: Treat the whole body once leaving on 12 hours then retreat in once week follow up with your doctor in one week if not improving Prescriptions: Permethrin [Bedding [place]] 142 gm MC ONCE #1 spray Prednisone [Prednisone 20Mg] 20 mg PO BID #10 tab Forms: Patient Portal Access Time of Disposition: 17:00 Quality - Quality Measures Quality Measures: N/A - Blood Pressure Screening View Details: Yes Blood Pressure Classification: Pre-Hypertensive BP Reading Systolic Measurement: 124 Diastolic Measurement: 79 Screening for High Blood Pressure: < Pre-Hypertensive BP, F/U Documented > [ G8950] Pre-Hypertensive Follow-up Interventions: Referral to alternative/primary care provider.
== END 2016-10-03 17:08 | disposition home or self-care (01) ==
LOC: ER 16:35
DX: B86 Scabies (principal)
CPT/HCPCS: 99282

== ENCOUNTER 2017-09-07 13:26 | Emergency (ER) | payer MEDICAID ==
--- NOTE | 2017-09-07 13:54 | Emergency Department Record ---
History of Present Illness - General Chief complaint: Female Urogenital Problem Stated complaint: PAIN IN LOWER SIDE/4 WEEKS PREG Time Seen by Provider: 09/07/17 13:35 Source: Patient Mode of Arrival: Ambulatory Limitations: No limitations - History of Present Illness Initial comments: 27 yo female presents approximately 4 weeks . Her next cycle is not actually due until tomorrow. She had a positive home test on the 8th. The last 2 days she has had some sharp right lower pelvic pain. No vaginal bleeding or spotting. She has had some recent hot flashes and nausea. This will be her 4th . She has one son and two miscarriages. No other current changes in her health. MD Complaint: Pelvic pain -: Days(s) (2) Location: RLQ Radiation: Non-radiating Severity: Mild Quality: Aching Consistency: Intermittent Improves with: None Worsens with: None Patient : Yes Associated Symptoms: Denies other symptoms - Related Data Sexually active: Yes Home Medications Medication Instructions Recorded Confirmed Last Taken Folic Acid 1 mg PO ASDIR 09/07/17 09/07/17 09/07/17 Allergies Allergy/AdvReac Type Severity Reaction Status Date / Time nitrous oxide Allergy Severe SWELLING Verified 09/07/17 13:47 OF THE FACE enoxaparin sodium Allergy Intermediate ITCHING Verified 09/07/17 13:47 [From Lovenox] ibuprofen Allergy Intermediate itching Verified 09/07/17 13:47 amoxicillin [Amoxicillin] Allergy Mild RASH Verified 09/07/17 13:47 naproxen AdvReac Intermediate HEADACHE Verified 09/07/17 13:47 topiramate [From Topamax] AdvReac Intermediate to many Verified 09/07/17 13:47 side affects Review of Systems Constitutional: Denies: Chills, Fever, Malaise, Night sweats, Weakness, Weight change Eyes: Denies: Eye discharge, Eye pain, Photophobia ENT: Denies: Congestion, Throat pain Respiratory: Denies: Cough, Dyspnea, Wheezes Cardiovascular: Denies: Chest pain, Palpitations, Syncope Endocrine: Denies: Fatigue Gastrointestinal: Reports: Nausea. Denies: Abdominal pain, Diarrhea, Vomiting Genitourinary: Reports: Abnormal menses. Denies: Discharge, Dysuria, Frequency , Hematuria, Incontinence, Urgency Musculoskeletal: Denies: Arthralgia, Back pain, Myalgia Skin: Denies: Bruising, Change in color, Rash Neurological: Denies: Headache, Numbness, Weakness Psychiatric: Denies: Anxiety Hematological/Lymphatic: Denies: Easy bleeding, Easy bruising Past Medical History - SOCIAL HISTORY Smoking Status: Current every day smoker - RESPIRATORY Hx Respiratory Disorders: No - CARDIOVASCULAR Hx Cardio Disorders: No - NEURO Hx Neuro Disorders: Yes Hx Dizziness: Yes Hx Headaches: Yes Hx Seizures: Yes (day dream seizures, epilepsy) - GI Hx GI Disorders: No - Hx Genitourinary Disorders: No - ENDOCRINE Hx Endocrine Disorders: No - MUSCULOSKELETAL Hx Musculoskeletal Disorders: Yes Hx Back Injury: Yes (L1 from fall off roof 2007) Comment:: conective tissue disorder, scoliosis - PSYCH Hx Psych Problems: Yes Hx Anxiety: Yes Hx Depression: Yes - HEMATOLOGY/ONCOLOGY Hx Hematology/Oncology Disorders: Yes Comment:: auto immune deficiency Family Medical History Family Hx Comment (NOT TO BE USED IN PLACE OF ITEMS BELOW): Dad-brain aneurysm Mother has Lupus and White Brain Matter disease. Hx Depression: Mother Hx Heart Disease: Mother Hx HTN: Mother Physical Exam - General General Appearance: Alert, Oriented x3, Cooperative, No acute distress Limitations: No limitations - Head Head exam: Atraumatic, Normal inspection - Eye Eye exam: Normal appearance - ENT ENT exam: Normal exam Ear exam: Normal external inspection Nasal Exam: Normal inspection Mouth exam: Normal external inspection - Neck Neck exam: Normal inspection - GI/Abdominal GI/Abdominal exam: Soft. negative: Distended, Guarding, Rebound, Rigid, Tenderness - Rectal Rectal exam: Deferred - exam: Adnexal tenderness (R) (mild ), Normal bimanual exam, Normal external exam, Normal speculum exam, Vaginal discharge (mild white DC, NO bleeding of spotting). negative: Adnexal mass (L), Adnexal mass (R), Adnexal tenderness (L) , cervical motion tenderness, Vaginal bleeding, Vaginal erythema - Extremities Extremities exam: Normal inspection - Back Back exam: Denies: CVA tenderness (R), CVA tenderness (L) - Neurological Neurological exam: Alert, Oriented X3 - Psychiatric Psychiatric exam: Normal affect, Normal mood. negative: Agitated, Anxious - Skin Skin exam: Dry, Intact, Normal color, Warm Course - Reevaluation(s) Reevaluation #1: By history the patient is Rh- and has had RhoGam in the past. She is not bleeding so will not require at this time. 09/07/17 14:32 No acute change on the CBC The HCG is 468 09/07/17 14:35 09/07/17 16:22 Us reviewed. No IUP with Quant of 468. Small amount of FF on the left. The results were discussed with the patient. Given this is early as she is not late on her cycle, low quant, no IUP on US she will need a recheck HCG level in 2 days. She ill need to call her OB. I also explained with her Rh negative she will need to be seem immediately if she has any spotting or bleeding otherwise see her OB for RhoGam at the appropriate time during this . 09/07/17 16:26 Medical Decision Making - Lab Data Result diagrams: 09/07/17 13:55 09/07/17 13:55 Disposition Disposition: Discharge Clinical Impression: Pelvic pain, Disposition: Home, Self-Care Condition: (1) Good Instructions: Threatened Miscarriage (ED) Additional Instructions: You will need a repeat HCG blood test in 2 days Call your OB to schedule follow up Immediately be seen if worse, bleeding or any new concerns Forms: Patient Portal Access Time of Disposition: 16:30 Quality - Quality Measures Quality Measures: (14-50yr) - : US Determination Quality Measure: Measure #254: US Determination of Location US Determination of Location: < Trans-Abdominal or Trans-Vaginal US Performed > [G8806] - : Rhogam Quality Measure: Measure #255: Rhogam for Rh-Negative Women ICD10 Codes Entered: Yes Rhogam for Rh-Negative Women at Risk: Rh-immunoglobulin NOT Ordered w/ Reason [G8810] Reason for not prescribing Rhogam: Other (No bleeding) - Blood Pressure Screening Does Patient Have Any of the Following: No Blood Pressure Classification: Normal BP Reading Systolic Measurement: 108 Diastolic Measurement: 73 Screening for High Blood Pressure: < Normal BP, F/U Not Required > [G8783]
[2017-09-07 14:09] LABS: BASO % 0.4 % (0-6); EOS % 1.9 % (0-6); HEMOGLOBIN 14.7 gm/dl (11.6-16.0); LYMPH % 34.4 % (16-45); MEAN CELL VOLUME 88.5 fl (81-97); MEAN CORPUSCULAR HEMOGLOBIN 30.2 pg (27-33); MEAN CORPUSCULAR HGB CONC 34.2 g/dl (32-36); MEAN PLATELET VOLUME 10.9 fl (7.4-10.4); MONO % 12.3 % (0-9); PLATELET COUNT 231 K/uL (130-400); RED BLOOD COUNT 4.86 M/uL (3.80-5.40); RED CELL DISTRIBUTION WIDTH 13.3 % (11.5-14.5); WHITE BLOOD COUNT W/O DIFF 4.7 K/uL (4.2-12.2)
[2017-09-07 14:28] LABS: TOTAL B-hCG 468.8 mIU/mL
[2017-09-07 14:33] LABS: BLOOD UREA NITROGEN 9 mg/dL (6-20); CREATININE 0.8 mg/dL (0.5-0.9); EST GLOMERULAR FILTRATION RATE > 60 mL/min
[2017-09-07 14:36] LABS: GLUCOSE,RANDOM 83 mg/dL (74-109)
[2017-09-07] MEDS ORDERED: DEXAMETHASONE 4 MG/ML 1ML VIAL IVP ONE (16:02)
[2017-09-07] MEDS ORDERED: FENTANYL PF 100MCG/2ML VIAL IVP ONE (16:02)
[2017-09-07 16:27] LABS: URINE APPEARANCE CLEAR; URINE BILIRUBIN NEGATIVE (NEGATIVE); URINE BLOOD NEGATIVE (NEGATIVE); URINE COLOR YELLOW; URINE GLUCOSE (UA) NEGATIVE (NEGATIVE); URINE KETONE NEGATIVE (NEGATIVE); URINE LEUKOCYTE ESTERASE NEGATIVE (NEGATIVE); URINE NITRITE NEGATIVE (NEGATIVE); URINE PROTEIN NEGATIVE (NEGATIVE); URINE UROBILINOGEN 0.2 E.U./dL (0.20 - 1.00)
[2017-09-08 17:54] LABS: GC SPECIMEN TYPE Vaginal
--- NOTE | 2017-09-09 10:12 | ULTRASOUND REPORT ---
EXAM: FIRST TRIMESTER ULTRASOUND HISTORY: RIGHT LOWER QUADRANT PAIN. TECHNIQUE: Transvaginal and transabdominal sonographic evaluation of the first trimester was performed using valera scale imaging with the addition of Doppler. FINDINGS: TRANSABDOMINAL ULTRASOUND: The uterus is normal in position. The uterus measures 7.2 x 4.4 x 5.4 cm. The endometrial stripe measures 9 mm. The ovaries are normal in size. TRANSVAGINAL ULTRASOUND: The uterus is normal in position. The uterus measures 7.2 x 4.4 x 5.4 cm. The endometrial stripe measures 9 mm. The ovaries are normal in size. There is normal arterial and venous flow. No intrauterine is appreciated. There is free fluid surrounding the left ovary and cul-de-sac region. IMPRESSION: NO INTRAUTERINE IS APPRECIATED. THERE IS FREE FLUID IN THE LEFT ADNEXA AND CUL-DE-SAC. CONTINUE SHORT TERM FOLLOW-UP IMAGING AND CORRELATION WITH PATIENT'S BETA HCG LEVEL IS RECOMMENDED. JOB NUMBER: [id number] MTDD
== END 2017-09-07 16:58 | disposition home or self-care (01) ==
LOC: ER 13:26
DX: O26.891 Other specified pregnancy related conditions, first trimester (principal); O36.0910 Maternal care for other rhesus isoimmunization, first trimester, not applicable or unspecified; O99.331 Smoking (tobacco) complicating pregnancy, first trimester; R10.2 Pelvic and perineal pain; Z3A.01 Less than 8 weeks gestation of pregnancy; F17.210 Nicotine dependence, cigarettes, uncomplicated
CPT/HCPCS: 99284 ×2; 85025; 84702; 80048; 81003; 86901; 76817; 76801; Q0111; 87210

== ENCOUNTER 2017-10-01 20:15 | Emergency (ER) | payer MEDICAID ==
[2017-10-01] MEDS ORDERED: CLINDAMYCIN 150 MG CAP PO ONE (20:23)
--- NOTE | 2017-10-01 20:25 | Emergency Department Record ---
History of Present Illness - General Chief complaint: Dental Stated complaint: ABSCESS,HEADACHE,NECK PAIN,LT SIDE CRAMPING Time Seen by Provider: 10/01/17 20:17 Source: Patient Mode of Arrival: Ambulatory Limitations: No limitations - History of Present Illness Initial comments: 27 yo female presents to ED for evaluation of a gingival abscess that has been present for "months", reports that the abscess has been draining spontaneously. Patient reports that she has been "squeezing the pus out" on her own, denies fevers, chills, ore recent illness. Patient denies health problems at her baseline. MD complaint: Difficulty swallowing -: Month(s) 1 - Gingical abscess Severity: Moderate Quality: Aching Consistency: Constant Improves with: None Worsens with: None - Related Data Previous Rx's Medication Instructions Recorded Clindamycin HCl 300 mg PO QID #39 capsule 10/01/17 Allergies Allergy/AdvReac Type Severity Reaction Status Date / Time nitrous oxide Allergy Severe SWELLING Verified 09/07/17 13:47 OF THE FACE enoxaparin sodium Allergy Intermediate ITCHING Verified 09/07/17 13:47 [From Lovenox] ibuprofen Allergy Intermediate itching Verified 09/07/17 13:47 amoxicillin [Amoxicillin] Allergy Mild RASH Verified 09/07/17 13:47 naproxen AdvReac Intermediate HEADACHE Verified 09/07/17 13:47 topiramate [From Topamax] AdvReac Intermediate to many Verified 09/07/17 13:47 side affects Review of Systems Constitutional: Denies: Chills, Fever, Malaise Eyes: Denies: Eye discharge, Eye pain ENT: Reports: Dental pain. Denies: Congestion, Ear pain, Epistaxis Respiratory: Denies: Cough, Dyspnea Cardiovascular: Denies: Chest pain, Dyspnea on exertion Endocrine: Denies: Fatigue, Heat or cold intolerance Gastrointestinal: Denies: Abdominal pain, Nausea, Vomiting Genitourinary: Denies: Incontinence, Retention Musculoskeletal: Denies: Arthralgia, Back pain Skin: Denies: Bruising, Change in color Neurological: Denies: Abnormal gait, Confusion, Headache, Seizure Psychiatric: Denies: Anxiety Hematological/Lymphatic: Denies: Anemia, Blood Clots Past Medical History - SOCIAL HISTORY Smoking Status: Current every day smoker - RESPIRATORY Hx Respiratory Disorders: No - CARDIOVASCULAR Hx Cardio Disorders: No - NEURO Hx Neuro Disorders: Yes Hx Dizziness: Yes Hx Headaches: Yes Hx Seizures: Yes (day dream seizures, epilepsy) - GI Hx GI Disorders: No - Hx Genitourinary Disorders: No - ENDOCRINE Hx Endocrine Disorders: No - MUSCULOSKELETAL Hx Musculoskeletal Disorders: Yes Hx Back Injury: Yes (L1 from fall off roof 2007) Comment:: conective tissue disorder, scoliosis - PSYCH Hx Psych Problems: Yes Hx Anxiety: Yes Hx Depression: Yes - HEMATOLOGY/ONCOLOGY Hx Hematology/Oncology Disorders: Yes Comment:: auto immune deficiency Family Medical History Family Hx Comment (NOT TO BE USED IN PLACE OF ITEMS BELOW): Dad-brain aneurysm Mother has Lupus and White Brain Matter disease. Hx Depression: Mother Hx Heart Disease: Mother Hx HTN: Mother Physical Exam - General General Appearance: Alert, Oriented x3, Cooperative, No acute distress Limitations: No limitations - Head Head exam: Atraumatic, Normocephalic, Normal inspection Head exam detail: negative: Abrasion, Contusion, Cruz's sign, General tenderness, Hematoma, Laceration - Eye Eye exam: Normal appearance. negative: Conjunctival injection, Periorbital swelling, Periorbital tenderness, Scleral icterus - ENT Ear exam: negative: Auricular hematoma, Auricular trauma Nasal Exam: negative: Active bleeding, Discharge, Dried blood, Foreign body Mouth exam: negative: Drooling, Laceration, Muffled voice, Tongue elevation Teeth exam: Gingival enlargement, Other Throat exam: negative: Tonsillar erythema, Tonsillomegaly, R peritonsillar mass , L peritonsillar mass Image of Mouth/Teeth: 1 - Spontaneously draining gingival abscess - Neck Neck exam: Normal inspection. negative: Meningismus, Tenderness - Respiratory Respiratory exam: Normal lung sounds bilaterally. negative: Rales, Respiratory distress, Rhonchi, Stridor - Cardiovascular Cardiovascular Exam: Regular rate, Normal rhythm, Normal heart sounds - GI/Abdominal GI/Abdominal exam: Soft. negative: Rebound, Rigid, Tenderness - Rectal Rectal exam: Deferred - exam: Deferred - Extremities Extremities exam: Normal inspection. negative: Calf tenderness, Pedal edema, Tenderness - Back Back exam: Denies: CVA tenderness (R), CVA tenderness (L) - Neurological Neurological exam: Alert, Normal gait, Oriented X3 - Psychiatric Psychiatric exam: Normal affect, Normal mood - Skin Skin exam: Normal color. negative: Abrasion Type of lesion: negative: abrasion Course Vital Signs 10/01/17 20:20 Temperature 98.1 F Pulse Rate [ 95 H Pulse Ox Probe] Respiratory 24 Rate Blood Pressure 122/78 [Left Arm] Pulse Ox 100 - Reevaluation(s) Reevaluation #1: 10/01/17 20:30 Patient was seen and examined, abscess is spontaneously draining on examination. Will initiate treatment with Clindamycin, patient appears stable for discharge at this time with dental follow-up. Disposition Disposition: Discharge Clinical Impression: Gingival abscess Disposition: Home, Self-Care Condition: (2) Stable Instructions: Abscess (ED) Additional Instructions: Return to ED if your symptoms worsen or if you have any concerns. Clindamycin as directed. Follow-up with your dentist in 3-5 days as directed. Prescriptions: Clindamycin HCl 300 mg PO QID #39 capsule Forms: Patient Portal Access Time of Disposition: 20:25 Quality - Quality Measures Quality Measures: N/A - Blood Pressure Screening Does Patient Have Any of the Following: No Blood Pressure Classification: Pre-Hypertensive BP Reading Systolic Measurement: 125 Diastolic Measurement: 85 Screening for High Blood Pressure: < Pre-Hypertensive BP, F/U Documented > [ G8950] Pre-Hypertensive Follow-up Interventions: Referral to alternative/primary care provider.
== END 2017-10-01 20:47 | disposition home or self-care (01) ==
LOC: ER 20:15
DX: K05.212 Aggressive periodontitis, localized, moderate (principal); F17.210 Nicotine dependence, cigarettes, uncomplicated
CPT/HCPCS: 99282

== ENCOUNTER 2018-02-08 02:15 | Emergency (ER) | payer MEDICAID ==
--- NOTE | 2018-02-08 02:50 | Emergency Department Record ---
History of Present Illness - General Chief Complaint: Chest Pain Stated Complaint: CHEST PAIN Time Seen by Provider: 02/08/18 02:17 Source: Patient Mode of Arrival: Ambulatory Limitations: No limitations - History of Present Illness Initial Comments: 28 yo female at 27 2/7 presents to ED for evaluation of intermittent chest "pressure" symptoms with intermittent "poking" symptoms across the chest. Patient denies recent fevers, chills, or cough symptoms, and denies history of PE/DVT. 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 Patient denies lower extremity swelling or pain symptoms. 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 MD Complaint: Chest pain Onset/Timin -: Days(s) Onset: During rest Pain Location: Substernal, Left chest Pain Radiation: Back Severity scale (1-10): 6 Quality: Heaviness, Tightness Consistency: Intermittent Improves With: Nothing Worsens With: Supine Context: New medications Anginal Symptoms: Dyspnea, Nausea, Vomiting Treatments Prior to Arrival: None - Related Data On Oral Contraceptives: No Home Medications Medication Instructions Recorded Confirmed Last Taken Aspirin 81 mg PO DAILY 02/08/18 02/08/18 Unknown Heparin Sodium,Porcine [Heparin 1,000 unit IJ BID 02/08/18 02/08/18 Unknown Sodium] Allergies Allergy/AdvReac Type Severity Reaction Status Date / Time nitrous oxide Allergy Severe SWELLING Verified 02/08/18 02:27 OF THE FACE enoxaparin sodium Allergy Intermediate ITCHING Verified 02/08/18 02:27 [From Lovenox] ibuprofen Allergy Intermediate itching Verified 02/08/18 02:27 amoxicillin [Amoxicillin] Allergy Mild RASH Verified 02/08/18 02:27 naproxen AdvReac Intermediate HEADACHE Verified 02/08/18 02:27 topiramate [From Topamax] AdvReac Intermediate to many Verified 02/08/18 02:27 side affects Travel Screening - Travel/Exposure Within Last 30 Days Have you traveled within the last 30 days?: No - Travel/Exposure Within Last Year Have you traveled outside the [place] in the last year?: No - Additonal Travel Details Have you been exposed to anyone with a communicable illness?: No - Travel Symptoms Symptom Screening: None Review of Systems Constitutional: Denies: Chills, Fever, Malaise, Night sweats Eyes: Denies: Eye discharge, Eye pain ENT: Denies: Congestion, Ear pain, Epistaxis Respiratory: Denies: Cough, Dyspnea Cardiovascular: Reports: Chest pain. Denies: Dyspnea on exertion, Edema Endocrine: Denies: Fatigue, Heat or cold intolerance Gastrointestinal: Reports: Vomiting. Denies: Abdominal pain, Nausea Genitourinary: Denies: Incontinence, Retention Musculoskeletal: Denies: Arthralgia, Back pain, Gout, Joint swelling Skin: Denies: Bruising, Change in color Neurological: Denies: Abnormal gait, Confusion, Headache, Seizure Psychiatric: Denies: Anxiety Hematological/Lymphatic: Reports: Easy bleeding, Easy bruising. Denies: Anemia , Blood Clots Past Medical History - SOCIAL HISTORY Smoking Status: Current every day smoker Alcohol Use: None Drug Use: None - RESPIRATORY Hx Respiratory Disorders: No - CARDIOVASCULAR Hx Cardio Disorders: Yes Comment:: elevated heart rate, had a holter monitor - NEURO Hx Neuro Disorders: Yes Hx Dizziness: Yes Hx Headaches: Yes Hx Seizures: Yes (day dream seizures, epilepsy) - GI Hx GI Disorders: No - Hx Genitourinary Disorders: No - ENDOCRINE Hx Endocrine Disorders: No - MUSCULOSKELETAL Hx Musculoskeletal Disorders: Yes Hx Back Injury: Yes (L1 from fall off roof 2007) Comment:: conective tissue disorder, scoliosis - PSYCH Hx Psych Problems: Yes Hx Anxiety: Yes Hx Depression: Yes - HEMATOLOGY/ONCOLOGY Hx Hematology/Oncology Disorders: Yes Comment:: auto immune deficiency. LUPUS anticoagulant Family Medical History Any Significant Family History?: Yes Family Hx Comment (NOT TO BE USED IN PLACE OF ITEMS BELOW): Dad-brain aneurysm Mother has Lupus and White Brain Matter disease. Hx Depression: Mother Hx Heart Disease: Mother Hx HTN: Mother Physical Exam - General General Appearance: Alert, Oriented x3, Cooperative, Mild distress Limitations: No limitations - Head Head exam: Atraumatic, Normocephalic, Normal inspection Head exam detail: negative: Abrasion, Contusion, Cruz's sign, General tenderness, Hematoma, Laceration - Eye Eye exam: Normal appearance. negative: Conjunctival injection, Periorbital swelling, Periorbital tenderness, Scleral icterus - ENT Ear exam: negative: Auricular hematoma, Auricular trauma Nasal Exam: negative: Active bleeding, Discharge, Dried blood, Foreign body Mouth exam: negative: Drooling, Laceration, Muffled voice, Tongue elevation - Neck Neck exam: Normal inspection. negative: Meningismus, Tenderness - Respiratory Respiratory exam: Normal lung sounds bilaterally. negative: Rales, Respiratory distress, Rhonchi, Stridor - Cardiovascular Cardiovascular Exam: Normal rhythm, Normal heart sounds, Tachycardia - GI/Abdominal GI/Abdominal exam: Soft. negative: Rebound, Rigid, Tenderness - Rectal Rectal exam: Deferred - exam: Deferred - Extremities Extremities exam: Normal inspection. negative: Calf tenderness, Pedal edema, Tenderness - Back Back exam: Denies: CVA tenderness (R), CVA tenderness (L) - Neurological Neurological exam: Alert, Normal gait, Oriented X3 - Psychiatric Psychiatric exam: Normal affect, Normal mood - Skin Skin exam: Normal color. negative: Abrasion Type of lesion: negative: abrasion Course Vital Signs 02/08/18 02:21 Temperature 98.1 F Respiratory 20 Rate Blood Pressure 115/79 [Left Arm] Pulse Ox 100 - Reevaluation(s) Reevaluation #1: 02/08/18 02:39 EKG: Sinus tachycardia 103 Normal axis, normal intervals T wave inversions III, AVF Possibility of PE given the patient's history and physical examination was discussed, will discuss transfer to [facility] for further evaluation. Reevaluation #2: 02/08/18 02:51 Case was discussed with Dr. Cooper, will accept transfer for possible VQ vs. CTPA for further evaluation of possible PE. Patient is in agreement with the plan of care as discussed. Disposition Disposition: Transfer Clinical Impression: Lupus anticoagulant affecting in third trimester, antepartum Chest pain Qualifiers: Chest pain type: unspecified Qualified Code(s): R07.9 - Chest pain, unspecified Disposition: Acute Care Hospital Transfer Transfer To: [facility] Reason For Transfer: VQ vs. CTPA Accepting Physician: Kenneth Time Discussed w/Accepting Physician: 02:53 Condition: (2) Stable Time of Disposition: 02:53 Quality - Quality Measures Quality Measures: N/A - Blood Pressure Screening Does Patient Have Any of the Following: No Blood Pressure Classification: Normal BP Reading Systolic Measurement: 115 Diastolic Measurement: 79 Screening for High Blood Pressure: < Normal BP, F/U Not Required > [G8783]
== END 2018-02-08 03:13 | disposition short-term general hospital (02) ==
LOC: ER 02:15
DX: O99.113 Other diseases of the blood and blood-forming organs and certain disorders involving the immune mechanism complicating pregnancy, third trimester (principal); D68.2 Hereditary deficiency of other clotting factors; O99.333 Smoking (tobacco) complicating pregnancy, third trimester; R07.89 Other chest pain; F17.210 Nicotine dependence, cigarettes, uncomplicated; Z3A.00 Weeks of gestation of pregnancy not specified
CPT/HCPCS: 93005; 93010; 99285

== ENCOUNTER 2018-03-19 21:04 | Emergency (ER) | payer MEDICAID ==
[2018-03-19] MEDS ORDERED: HEPARIN SODIUM 5,000 UNIT/ML VIAL SQ ONE ×2 (21:17→21:19)
--- NOTE | 2018-03-19 21:20 | Emergency Department Record ---
History of Present Illness - General Chief Complaint: General Stated Complaint: CHECK UP Time Seen by Provider: 03/19/18 21:05 Source: Patient Mode of Arrival: Ambulatory Limitations: No limitations - History of Present Illness Initial comments: 28 yo female presents to ED as she has been unable to fill a prescription of SQ heparin. Patient reports that the takes SQ heparin to prevent DVT while , reports previous reaction to Lovenox. Patient denies history of bleeding issues. Onset/Timin -: Minutes(s) Location: Left Radiation: Non-Radiating Quality: Aching Consistency: Constant Improves with: None Worsens with: None Associated Symptoms: Denies other symptoms Treatments Prior to Arrival: None - Danielito Coma Scale Eye Response: (4) Open spontaneously Motor Response: (6) Obeys commands Verbal Response: (5) Oriented Danielito Total: 15 - Related Data Allergies Allergy/AdvReac Type Severity Reaction Status Date / Time nitrous oxide Allergy Severe SWELLING Verified 02/08/18 02:27 OF THE FACE enoxaparin sodium Allergy Intermediate ITCHING Verified 02/08/18 02:27 [From Lovenox] ibuprofen Allergy Intermediate itching Verified 02/08/18 02:27 amoxicillin [Amoxicillin] Allergy Mild RASH Verified 02/08/18 02:27 naproxen AdvReac Intermediate HEADACHE Verified 02/08/18 02:27 topiramate [From Topamax] AdvReac Intermediate to many Verified 02/08/18 02:27 side affects Review of Systems Constitutional: Denies: Chills, Fever, Malaise, Night sweats Eyes: Denies: Eye discharge, Eye pain ENT: Denies: Congestion, Ear pain, Epistaxis Respiratory: Denies: Cough, Dyspnea Cardiovascular: Denies: Chest pain, Dyspnea on exertion Endocrine: Denies: Fatigue, Heat or cold intolerance Gastrointestinal: Denies: Abdominal pain, Nausea, Vomiting Genitourinary: Denies: Incontinence, Retention Musculoskeletal: Reports: Arthralgia. Denies: Back pain, Gout Skin: Denies: Bruising, Change in color Neurological: Denies: Abnormal gait, Confusion, Headache, Seizure Psychiatric: Denies: Anxiety Hematological/Lymphatic: Denies: Anemia, Blood Clots Past Medical History - SOCIAL HISTORY Smoking Status: Current every day smoker Alcohol Use: None Drug Use: None - RESPIRATORY Hx Respiratory Disorders: No - CARDIOVASCULAR Hx Cardio Disorders: Yes Comment:: elevated heart rate, had a holter monitor - NEURO Hx Neuro Disorders: Yes Hx Dizziness: Yes Hx Headaches: Yes Hx Seizures: Yes (day dream seizures, epilepsy) - GI Hx GI Disorders: No - Hx Genitourinary Disorders: No - ENDOCRINE Hx Endocrine Disorders: No - MUSCULOSKELETAL Hx Musculoskeletal Disorders: Yes Hx Back Injury: Yes (L1 from fall off roof 2007) Comment:: conective tissue disorder, scoliosis - PSYCH Hx Psych Problems: Yes Hx Anxiety: Yes Hx Depression: Yes - HEMATOLOGY/ONCOLOGY Hx Hematology/Oncology Disorders: Yes Comment:: auto immune deficiency. LUPUS anticoagulant Family Medical History Any Significant Family History?: Yes Family Hx Comment (NOT TO BE USED IN PLACE OF ITEMS BELOW): Dad-brain aneurysm Mother has Lupus and White Brain Matter disease. Hx Depression: Mother Hx Heart Disease: Mother Hx HTN: Mother Physical Exam - General General Appearance: Alert, Oriented x3, Cooperative, No acute distress Limitations: No limitations - Head Head exam: Atraumatic, Normocephalic, Normal inspection Head exam detail: negative: Abrasion, Contusion, Cruz's sign, General tenderness, Hematoma, Laceration - Eye Eye exam: Normal appearance. negative: Conjunctival injection, Periorbital swelling, Periorbital tenderness, Scleral icterus - ENT Ear exam: negative: Auricular hematoma, Auricular trauma Nasal Exam: negative: Active bleeding, Discharge, Dried blood, Foreign body Mouth exam: negative: Drooling, Laceration, Muffled voice, Tongue elevation - Neck Neck exam: Normal inspection. negative: Meningismus, Tenderness - Respiratory Respiratory exam: Normal lung sounds bilaterally. negative: Rales, Respiratory distress, Rhonchi, Stridor - Cardiovascular Cardiovascular Exam: Regular rate, Normal rhythm, Normal heart sounds - GI/Abdominal GI/Abdominal exam: Soft, Other (Gravid Uterus). negative: Rebound, Rigid, Tenderness - Rectal Rectal exam: Deferred - exam: Deferred - Extremities Extremities exam: Normal inspection. negative: Pedal edema - Back Back exam: Denies: CVA tenderness (R), CVA tenderness (L) - Neurological Neurological exam: Alert, Normal gait, Oriented X3 - Psychiatric Psychiatric exam: Normal affect, Normal mood - Skin Skin exam: Normal color. negative: Abrasion Type of lesion: negative: abrasion Course Vital Signs 03/19/18 21:09 Temperature 99.1 F Pulse Rate [ 95 H Pulse Ox Probe] Respiratory 20 Rate Blood Pressure 119/73 [Left Arm] Pulse Ox 98 - Reevaluation(s) Reevaluation #1: 03/20/18 00:30 Will administer Heparin 10,000 units SQ with instructions to fill her prescription tomorrow to continue her anticoagulation. Disposition Disposition: Discharge Clinical Impression: Encounter for medication refill Disposition: Home, Self-Care Condition: (2) Stable Instructions: Medicine Refill (ED) Additional Instructions: Return to ED if your symptoms worsen or if you have any concerns. Heparin as directed. Follow-up with Dr. King in 1-3 days as directed. Forms: Patient Portal Access Time of Disposition: 21:19 Quality - Quality Measures Quality Measures: N/A, (14-50yr) - : US Determination Quality Measure: Measure #254: US Determination of Location US Determination of Location: < Trans-Abdominal or Trans-Vaginal US Performed > [G8806] Reason for No US: Other - : Rhogam Quality Measure: Measure #255: Rhogam for Rh-Negative Women ICD10 Codes Entered: Yes Rhogam for Rh-Negative Women at Risk: Rh-immunoglobulin NOT Ordered w/ Reason [G8810] Reason for not prescribing Rhogam: Other - Blood Pressure Screening Does Patient Have Any of the Following: No Blood Pressure Classification: Normal BP Reading Systolic Measurement: 118 Diastolic Measurement: 74 Screening for High Blood Pressure: < Normal BP, F/U Not Required > [G8783]
== END 2018-03-19 21:37 | disposition home or self-care (01) ==
LOC: ER 21:04
DX: Z76.0 Encounter for issue of repeat prescription (principal); O09.899 Supervision of other high risk pregnancies, unspecified trimester; O99.330 Smoking (tobacco) complicating pregnancy, unspecified trimester; F17.210 Nicotine dependence, cigarettes, uncomplicated
CPT/HCPCS: 96372; 99283

== ENCOUNTER 2018-03-20 20:33 | Emergency (ER) | payer MEDICAID ==
[2018-03-20] MEDS ORDERED: HEPARIN SODIUM 5,000 UNIT/ML VIAL SQ ONE (20:42)
--- NOTE | 2018-03-20 20:57 | Emergency Department Record ---
History of Present Illness - General Chief Complaint: General Stated Complaint: MED ADMINISTRATION Time Seen by Provider: 03/20/18 20:35 Source: Patient Mode of Arrival: Ambulatory Limitations: No limitations - History of Present Illness Initial comments: The patient is here due to needing a heparin shot. She is here due to being unable to fill her Heparin shot. She is on Heparin SQ due to clotting issues and she is 32 weeks . The patient denies any problems, pain, SOB, or VERENICE. Onset/Timin -: Days(s) - Danielito Coma Scale Eye Response: (4) Open spontaneously Motor Response: (6) Obeys commands Verbal Response: (5) Oriented Fleming Total: 15 - Related Data Allergies Allergy/AdvReac Type Severity Reaction Status Date / Time nitrous oxide Allergy Severe SWELLING Verified 02/08/18 02:27 OF THE FACE enoxaparin sodium Allergy Intermediate ITCHING Verified 02/08/18 02:27 [From Lovenox] ibuprofen Allergy Intermediate itching Verified 02/08/18 02:27 amoxicillin [Amoxicillin] Allergy Mild RASH Verified 02/08/18 02:27 naproxen AdvReac Intermediate HEADACHE Verified 02/08/18 02:27 topiramate [From Topamax] AdvReac Intermediate to many Verified 02/08/18 02:27 side affects Travel Screening - Travel/Exposure Within Last 30 Days Have you traveled within the last 30 days?: No - Travel Symptoms Symptom Screening: None Review of Systems Constitutional: Denies: Chills, Fever Past Medical History - SOCIAL HISTORY Smoking Status: Current every day smoker Alcohol Use: None Drug Use: None - RESPIRATORY Hx Respiratory Disorders: No - CARDIOVASCULAR Hx Cardio Disorders: Yes Comment:: elevated heart rate, had a holter monitor - NEURO Hx Neuro Disorders: Yes Hx Dizziness: Yes Hx Headaches: Yes Hx Seizures: Yes (day dream seizures, epilepsy) - GI Hx GI Disorders: No - Hx Genitourinary Disorders: No - ENDOCRINE Hx Endocrine Disorders: No - MUSCULOSKELETAL Hx Musculoskeletal Disorders: Yes Hx Back Injury: Yes (L1 from fall off roof 2007) Comment:: conective tissue disorder, scoliosis - PSYCH Hx Psych Problems: Yes Hx Anxiety: Yes Hx Depression: Yes - HEMATOLOGY/ONCOLOGY Hx Hematology/Oncology Disorders: Yes Comment:: auto immune deficiency. LUPUS anticoagulant Family Medical History Any Significant Family History?: Yes Family Hx Comment (NOT TO BE USED IN PLACE OF ITEMS BELOW): Dad-brain aneurysm Mother has Lupus and White Brain Matter disease. Hx Depression: Mother Hx Heart Disease: Mother Hx HTN: Mother Physical Exam - General General Appearance: Alert, Oriented x3, Cooperative, No acute distress - Head Head exam: Atraumatic, Normocephalic, Normal inspection - Eye Eye exam: Normal appearance, PERRL - Neck Neck exam: Normal inspection, Full ROM. negative: Tenderness - Respiratory Respiratory exam: Normal lung sounds bilaterally. negative: Respiratory distress - Cardiovascular Cardiovascular Exam: Regular rate, Normal rhythm, Normal heart sounds Course Vital Signs 03/20/18 20:39 Temperature 98.4 F Pulse Rate [ 99 H Pulse Ox Probe] Respiratory 20 Rate Blood Pressure 118/75 [Left Arm] Pulse Ox 100 Disposition Disposition: Discharge Clinical Impression: Encounter for medication refill Disposition: Home, Self-Care Condition: (2) Stable Instructions: Medicine Refill (ED) Additional Instructions: PLease see your doctor as planned tomorrow and return to the ER for any problems. Forms: Patient Portal Access Time of Disposition: 21:03 Quality - Quality Measures Quality Measures: (14-50yr) - : US Determination Quality Measure: Measure #254: US Determination of Location ICD10 Codes Entered: Yes View Details: Yes US Determination of Location: Trans-Abdominal or Trans-Vaginal US NOT Performed [G8808] Reason for No US: Documented Intrauterine - : Rhogam Quality Measure: Measure #255: Rhogam for Rh-Negative Women ICD10 Codes Entered: Yes View Details: Yes Rhogam for Rh-Negative Women at Risk: Rh-immunoglobulin NOT Ordered [ G8811] Reason for not prescribing Rhogam: Patient Refusal - Blood Pressure Screening View Details: Yes Does Patient Have Any of the Following: No Blood Pressure Classification: Normal BP Reading Systolic Measurement: 118 Diastolic Measurement: 75 Screening for High Blood Pressure: < Normal BP, F/U Not Required > [G8783]
== END 2018-03-20 21:17 | disposition home or self-care (01) ==
LOC: ER 20:33
DX: Z76.0 Encounter for issue of repeat prescription (principal); O09.899 Supervision of other high risk pregnancies, unspecified trimester; O99.330 Smoking (tobacco) complicating pregnancy, unspecified trimester; F17.210 Nicotine dependence, cigarettes, uncomplicated
CPT/HCPCS: 96372; 99282

== ENCOUNTER 2018-06-07 14:06 | Emergency (ER) | payer MEDICAID ==
--- NOTE | 2018-06-07 15:21 | Emergency Department Record ---
History of Present Illness - General Chief complaint: Cold Stated complaint: STUFFY NOSE/CONGESTION Time Seen by Provider: 06/07/18 15:13 Source: Patient Mode of Arrival: Ambulatory Limitations: No limitations - History of Present Illness Initial comments: The patient has had a cold for a week and is not feeling better. She has had a dry cough, runny nose and slight sore throat. The patient denies any fever, chills, CP, SOB, or CONWAY. She was seen at the last week and was told she had a virus. MD complaint: Other Onset/Timin -: Week(s) - Related Data Previous Rx's Medication Instructions Recorded Doxycycline Monohydrate [Mondoxyne 100 mg PO BID 7 Days #14 capsule 06/07/18 Nl] Allergies Allergy/AdvReac Type Severity Reaction Status Date / Time nitrous oxide Allergy Severe SWELLING Unverified 03/24/18 14:04 OF THE FACE enoxaparin sodium Allergy Intermediate ITCHING Unverified 03/24/18 14:04 [From Lovenox] ibuprofen Allergy Intermediate itching Unverified 03/24/18 14:04 amoxicillin [Amoxicillin] Allergy Mild RASH Unverified 03/24/18 14:04 naproxen AdvReac Intermediate HEADACHE Unverified 03/24/18 14:04 topiramate [From Topamax] AdvReac Intermediate to many Unverified 03/24/18 14:04 side affects Travel Screening - Travel/Exposure Within Last 30 Days Have you traveled within the last 30 days?: No - Travel/Exposure Within Last Year Have you traveled outside the [place] in the last year?: No - Additonal Travel Details Have you been exposed to anyone with a communicable illness?: No - Travel Symptoms Symptom Screening: None Review of Systems Constitutional: Denies: Chills, Fever Eyes: Denies: Eye discharge ENT: Reports: Congestion Respiratory: Reports: Cough. Denies: Dyspnea Past Medical History - SOCIAL HISTORY Smoking Status: Current every day smoker Alcohol Use: None Drug Use: None - RESPIRATORY Hx Respiratory Disorders: No - CARDIOVASCULAR Hx Cardio Disorders: Yes Comment:: elevated heart rate, had a holter monitor - NEURO Hx Neuro Disorders: Yes Hx Dizziness: Yes Hx Headaches: Yes Hx Seizures: Yes (day dream seizures, epilepsy) - GI Hx GI Disorders: No - Hx Genitourinary Disorders: No - ENDOCRINE Hx Endocrine Disorders: No - MUSCULOSKELETAL Hx Musculoskeletal Disorders: Yes Hx Back Injury: Yes (L1 from fall off roof 2007) Comment:: conective tissue disorder, scoliosis - PSYCH Hx Psych Problems: Yes Hx Anxiety: Yes Hx Depression: Yes - HEMATOLOGY/ONCOLOGY Hx Hematology/Oncology Disorders: Yes Comment:: auto immune deficiency. LUPUS anticoagulant Family Medical History Any Significant Family History?: Yes Family Hx Comment (NOT TO BE USED IN PLACE OF ITEMS BELOW): Dad-brain aneurysm Mother has Lupus and White Brain Matter disease. Hx Depression: Mother Hx Heart Disease: Mother Hx HTN: Mother Physical Exam - General General Appearance: Alert, Oriented x3, Cooperative, No acute distress - Head Head exam: Atraumatic, Normocephalic, Normal inspection - Eye Eye exam: Normal appearance, PERRL, EOMI - ENT ENT exam: Normal exam, Mucous membranes moist, Normal external ear exam, Normal orophraynx, TM's normal bilaterally Throat exam: Normal inspection. negative: Tonsillar erythema, Tonsillar exudate - Neck Neck exam: Normal inspection, Full ROM. negative: Tenderness - Respiratory Respiratory exam: Normal lung sounds bilaterally. negative: Respiratory distress - Cardiovascular Cardiovascular Exam: Regular rate, Normal rhythm, Normal heart sounds - GI/Abdominal GI/Abdominal exam: Soft, Normal bowel sounds. negative: Tenderness - Extremities Extremities exam: Normal inspection, Full ROM, Normal capillary refill. negative: Tenderness Course Vital Signs 06/07/18 14:30 Temperature 98.1 F Pulse Rate 92 H Respiratory 16 Rate Blood Pressure 101/64 Pulse Ox 95 - Reevaluation(s) Reevaluation #1: I did explain to the patient that she most likely has a viral URI. She is to continue OTC cough and cold medicines and to only take the Doxycycline if not better in 5-7 days. 06/07/18 15:22 Disposition Disposition: Discharge Clinical Impression: URI, acute Disposition: Home, Self-Care Condition: (2) Stable Instructions: Cold Symptoms (ED) Additional Instructions: Please continue the OTC cough and cold medicines and only take the Doxycycline if not better in 5-7 days. Please see your family doctor next week for recheck if not better. Prescriptions: Doxycycline Monohydrate [Mondoxyne Nl] 100 mg PO BID 7 Days #14 capsule Forms: Patient Portal Access Time of Disposition: 15:23 Quality - Quality Measures Quality Measures: N/A - Blood Pressure Screening View Details: Yes Does Patient Have Any of the Following: No Blood Pressure Classification: Normal BP Reading Systolic Measurement: 101 Diastolic Measurement: 64 Screening for High Blood Pressure: < Normal BP, F/U Not Required > [[id number]]
== END 2018-06-07 15:28 | disposition home or self-care (01) ==
LOC: ER 14:06
DX: J06.9 Acute upper respiratory infection, unspecified (principal); R05 Cough; F17.210 Nicotine dependence, cigarettes, uncomplicated
CPT/HCPCS: 99282